=== PATIENT | male | born 1950 | race Caucasian/White ===

== ENCOUNTER 2017-05-10 11:50 | Emergency (ER) | payer OTHER ==
[~2017-05-10] VITALS: Ht 193 cm; Wt 92.9 kg
[~2017-05-10 11:50] MED LIST: ASPCH81 PO; CHOL100010 PO; COQ10100 PO; GLCSC500400 PO; LISI-729 PO; LPRUNK PO; MULT-506 PO; Multaq PO; OMEG10007 PO; PRD75 PO; SIMV10TA2 PO
[2017-05-10 11:51] VITALS: TEMP 37.1; Ht 193 cm; Wt 92.9 kg
[2017-05-10 12:00] VITALS: O2SAT 96
--- NOTE | 2017-05-10 12:27 | EMERGENCY ROOM VISIT NOTE ---
History Report prepared by Gigi: Ananya Sotomayor Under the Supervision of: Dr. Adelia Glover M.D. First contact with patient: 11:55 Chief Complaint: CHEST PAIN Stated Complaint: PVCS,CHEST DISCOMFORT, SOB History of Present Illness The patient is a 67 year old male who presents to the Emergency Room with complaints of persistent left sided chest pain that began one week ago. He currently rates his discomfort as a 4/10 in severity. The patient states that over the past week he has been experiencing left sided chest pain that he describes as a pressure and burning. He reports pain radiating into his left shoulder, but denies any pain radiating into jaw, neck, or back. The patient additionally reports palpitations. He states that his pain and palpitations worsen with exertion. The patient states that he has been short of breath with exertion. He reports a history of atrial fibrillation, and a DVT noting that he is on Xarelto. The patient additionally reports a history of muscular dystrophy. He reports recent increased stress, noting that his father was recently in the emergency department. The patient states that last night he experienced nausea, and additionally notes that he did not sleep well last night. He states that he has not eaten much today due to his nausea last night. The patient states that [] 8th he had a routine CT scan of his chest for a nodule in his lung. He states that he has had previous stress tests, noting that his last one was 5-6 years ago. The patient denies any personal history of heart disease, but notes a strong family history of heart disease, noting that his mother had a previous UT and his grandfather had an UT. He states that he takes aspirin every night. Source of History: patient Onset: one week ago Position: chest (left) Symptom Intensity: 4/10 Quality: pressure, burning Timing: other (persistent) Modifying Factors (Worsening): exertion Associated Symptoms: + SOB Note: Associated Symptoms: palpitations, pain radiating into left shoulder. Review of Systems See HPI for pertinent positives & negatives. A total of 10 systems reviewed and were otherwise negative. Past Medical & Surgical Medical Problems: (1) Atrial fibrillation (2) DVT (deep venous thrombosis) (3) Muscular dystrophy Family History Heart disease Social History Smoking Status: Never Smoker Marital Status: Housing Status: lives with significant other Occupation Status: retired Current/Historical Medications Scheduled Atorvastatin (Atorvastatin Calcium), 10 MG PO DAILY Dofetilide (Tikosyn), 500 MCG PO Q12 Lisinopril (Prinivil), 5 MG PO DAILY Metoprolol Succ (Toprol Xl) (Toprol-Xl), 50 MG PO DAILY Rivaroxaban (Xarelto), 20 MG PO DAILY Allergies Coded Allergies: No Known Allergies (Unverified , 05/10/17) Physical Exam Vital Signs Date Time Temp Pulse Resp B/P (MAP) Pulse Ox O2 Delivery O2 Flow Rate FiO2 05/10/17 14:30 80 05/10/17 14:22 165 05/10/17 13:24 80 18 126/69 95 Room Air 05/10/17 12:03 90 05/10/17 12:00 96 Room Air 05/10/17 12:00 96 Room Air 05/10/17 11:51 37.1 97 20 130/81 95 Room Air Physical Exam Vital signs reviewed. General: Well-appearing male, in no significant distress. HEENT: No scleral icterus, PERRLA, neck supple. Atraumatic. Cardiovascular: Regular rate and rhythm, no extra sounds. Pulmonary: Clear to auscultation bilaterally, normal work of breathing. Abdomen: Soft, nontender, nondistended, positive bowel sounds. Musculoskeletal: Atraumatic, no peripheral edema. Braces to his bilateral lower extremities. Neurologic: Patient awake alert and oriented x 3, full strength in all 4 extremities. Cranial nerves 2 through 12 grossly intact. Skin: Warm, dry, no rash Medical Decision & Procedures ER Provider Diagnostic Interpretation: CT results as stated below per my review and radiologist interpretation: CT ANGIOGRAPHY OF THE CHEST, PULMONARY EMBOLUS PROTOCOL CLINICAL HISTORY: Shortness of breath. Chest discomfort. COMPARISON STUDY: No previous studies for comparison. TECHNIQUE: Following IV administration of 116 mL of Optiray-320, helical axial images of the chest were obtained utilizing the pulmonary embolus protocol. Maximal intensity projections and sagittal and coronal reformats were viewed on an independent 3D workstation. IV contrast was administered without complication. A dose lowering technique was utilized adhering to the principles of ALARA. CT DOSE: 448.43 mGy.cm FINDINGS: No pulmonary emboli are identified. The size of the heart is normal. There is mild dilatation of the ascending aorta. The aortic root measures 4.2 cm at the level of the sinuses of Valsalva. There is no evidence of thoracic aortic dissection. There is no pericardial effusion. No enlarged axillary, mediastinal or hilar lymph nodes are present. The central airways are patent. There is no consolidation to suggest pneumonia. No pneumothorax or pleural effusion is present. Bony thorax and upper abdomen are unremarkable. Central airways are patent. IMPRESSION: 1. No pulmonary emboli identified. 2. No acute intrathoracic findings. 3. Mild dilatation of the ascending aorta, measuring 4.2 cm at the level of the sinuses of Valsalva. No thoracic aortic dissection. Electronically signed by: Earl Castro M.D. 05/10/2017 2:30 PM Dictated Date/Time: 05/10/2017 2:19 PM Laboratory Results 05/10/17 12:00 Red Blood Count 5.81, Mean Corpuscular Volume 88.8, Mean Corpuscular Hemoglobin 31.5, Mean Corpuscular Hemoglobin Concent 35.5, Mean Platelet Volume 10.9, Neutrophils (%) (Auto) 92.6, Lymphocytes (%) (Auto) 2.2, Monocytes (%) (Auto) 4.4, Eosinophils (%) (Auto) 0.4, Basophils (%) (Auto) 0.2, Neutrophils # (Auto) 10.04, Lymphocytes # (Auto) 0.24, Monocytes # (Auto) 0.48, Eosinophils # (Auto) 0.04, Basophils # (Auto) 0.02 05/10/17 12:00 Test 05/10/17 12:00 05/10/17 12:36 05/10/17 12:40 White Blood Count 10.84 K/uL (4.8-10.8) Red Blood Count 5.81 M/uL (4.7-6.1) Hemoglobin 18.3 g/dL (14.0-18.0) Hematocrit 51.6 % (42-52) Mean Corpuscular Volume 88.8 fL (80-100) Mean Corpuscular Hemoglobin 31.5 pg (25-34) Mean Corpuscular Hemoglobin Concent 35.5 g/dl (32-36) Platelet Count 200 K/uL (130-400) Mean Platelet Volume 10.9 fL (7.4-10.4) Neutrophils (%) (Auto) 92.6 % Lymphocytes (%) (Auto) 2.2 % Monocytes (%) (Auto) 4.4 % Eosinophils (%) (Auto) 0.4 % Basophils (%) (Auto) 0.2 % Neutrophils # (Auto) 10.04 K/uL (1.4-6.5) Lymphocytes # (Auto) 0.24 K/uL (1.2-3.4) Monocytes # (Auto) 0.48 K/uL (0.11-0.59) Eosinophils # (Auto) 0.04 K/uL (0-0.5) Basophils # (Auto) 0.02 K/uL (0-0.2) RDW Standard Deviation 42.1 fL (36.4-46.3) RDW Coefficient of Variation 13.1 % (11.5-14.5) Immature Granulocyte % (Auto) 0.2 % Immature Granulocyte # (Auto) 0.02 K/uL (0.00-0.02) Anion Gap 9.0 mmol/L (3-11) Est Creatinine Clear Calc Drug Dose 95.1 ml/min Estimated GFR () 97.0 Estimated GFR (Non- 83.7 BUN/Creatinine Ratio 17.6 (10-20) Calcium Level 8.4 mg/dl (8.5-10.1) Magnesium Level 2.2 mg/dl (1.8-2.4) Total Bilirubin 2.6 mg/dl (0.2-1) Direct Bilirubin 0.3 mg/dl (0-0.2) Aspartate Amino Transf (AST/SGOT) 27 U/L (15-37) Alanine Aminotransferase (ALT/SGPT) 45 U/L (12-78) Alkaline Phosphatase 75 U/L (45-117) Total Creatine Kinase 276 U/L (39-308) Creatine Kinase MB 6.4 ng/ml (0.5-3.6) Creatine Kinase MB Ratio 2.3 (0-3.0) Total Protein 7.1 gm/dl (6.4-8.2) Albumin 4.3 gm/dl (3.4-5.0) Bedside Troponin I < 0.030 ng/ml (0-0.045) Urine Color DK YELLOW Urine Appearance CLEAR (CLEAR) Urine pH 5.0 (4.5-7.5) Urine Specific [place] 1.027 (1.000-1.030) Urine Protein NEG (NEG) Urine Glucose (UA) NEG (NEG) Urine Ketones NEG (NEG) Urine Occult Blood TRACE (NEG) Urine Nitrite NEG (NEG) Urine Bilirubin NEG (NEG) Urine Urobilinogen NEG (NEG) Urine Leukocyte Esterase NEG (NEG) Urine WBC (Auto) 1-5 /hpf (0-5) Urine RBC (Auto) 0-4 /hpf (0-4) Urine Hyaline Casts (Auto) 1-5 /lpf (0-5) Urine Epithelial Cells (Auto) 5-10 /lpf (0-5) Urine Bacteria (Auto) NEG (NEG) Medications Administered Medications (Trade) Dose Ordered Sig/Facundo Route Start Time Stop Time Status Last Admin Dose Admin Sodium Chloride 500 ml @ 999 mls/hr Q31M STAT IV 05/10/17 12:28 05/10/17 12:58 DC 05/10/17 12:43 999 MLS/HR ECG Indication: chest pain, palpitations, SOB/dyspnea Rate (beats per minute): 91 Rhythm: normal sinus Findings: PVC, no acute ischemic change ED Course 1218: Past medical records reviewed. The patient was evaluated in room B4B. A complete history and physical examination was performed. 1228: Ordered Sodium Chloride 500 ml @ 999 mls/hr IV. 1450: I reevaluated the patient and he is resting comfortably. I discussed the test results with him and I discussed the treatment plan. He verbalized complete understanding and agreement. He is ready to go home shortly. Medical Decision Differential diagnoses includes acute coronary syndrome, pulmonary embolus, aortic dissection, musculoskeletal pain, pneumonia, pleural effusion, pneumothorax, gastritis, peptic ulcer disease. Medication Reconcilliation Current Medication List: was personally reviewed by me Blood Pressure Screening Patient's blood pressure: Normal blood pressure Blood pressure disposition: Did not require urgent referral Impression Primary Impression: Paroxysmal atrial fibrillation Additional Impression: Dyspnea Scribe Attestation The scribe's documentation has been prepared under my direction and personally reviewed by me in its entirety. I confirm that the note above accurately reflects all work, treatment, procedures, and medical decision making performed by me. Departure Information Dispostion Home / Self-Care Referrals Alistair Walters M.D. (PCP) Stevan Dickens D.O. Forms Call Back Authorization, HOME CARE DOCUMENTATION FORM, IMPORTANT VISIT INFORMATION Patient Instructions My [facility] Additional Instructions Diagnosis: Paroxysmal atrial fibrillation, dyspnea Please continue your medications as prescribed. Follow-up with cardiology this week as scheduled by case management. Return to the emergency department immediately for worsening of symptoms or any medical concerns. Problem Qualifiers
[2017-05-10] MEDS ORDERED: SODIUM CHLORIDE 0.9% 500ML 500 ML IV STA (12:28)
[2017-05-10] MEDS ORDERED: SODIUM CHLORIDE 0.9% 1000ML 1,000 ML IV STA (12:28)
[2017-05-10] MEDS ORDERED: LPT10 PO (12:44)
[2017-05-10] MEDS ORDERED: METO50TA7 PO (12:44)
[2017-05-10] MEDS ORDERED: DOFE500C PO (12:44)
[2017-05-10] MEDS ORDERED: LISI-729 PO (12:44)
[2017-05-10] MEDS ORDERED: RIVA1TAB4 PO (12:44)
[2017-05-10] MEDS ORDERED: OPTIRAY 320 IV PRN (12:45)
[2017-05-10 13:01] LABS: BUN/CREATININE RATIO 17.6 (10-20); CALCIUM 8.4 mg/dl (8.5-10.1); CREATININE 0.95 mg/dl (0.60-1.40); MAGNESIUM 2.2 mg/dl (1.8-2.4); POTASSIUM 3.8 mmol/L (3.5-5.1)
[2017-05-10 13:03] LABS: URINE APPEARANCE CLEAR (CLEAR); URINE BILIRUBIN NEG (NEG); URINE COLOR DK YELLOW; URINE NITRITE NEG (NEG); URINE SPECIFIC GRAVITY 1.027 (1.000-1.030); UROBILINOGEN NEG (NEG); ZZUR CULT IF INDIC CLEAN CATCH NO
[2017-05-10 13:06] LABS: MANUAL MICROSCOPIC REQUIRED? NO; REVIEW REQ? NO
[2017-05-10 13:06] LABS: CKMB/CK RATIO 2.3 (0-3.0)
[2017-05-10 13:32] LABS: BASO % 0.2 %; BASO ABS # 0.02 K/uL (0-0.2); COMPLETE YES; EOS % 0.4 %; HEMATOCRIT 51.6 % (42-52); IG% 0.2 %; LYMPH % 2.2 %; LYMPH ABS # 0.24 K/uL (1.2-3.4); MEAN CELL VOLUME 88.8 fL (80-100); MEAN CORPUSCULAR HEMOGLOBIN 31.5 pg (25-34); MEAN CORPUSCULAR HGB CONC 35.5 g/dl (32-36); MEAN PLATELET VOLUME 10.9 fL (7.4-10.4); MONO % 4.4 %; NEUT % 92.6 %; PLATELET COUNT 200 K/uL (130-400); RED BLOOD COUNT 5.81 M/uL (4.7-6.1); WHITE BLOOD COUNT 10.84 K/uL (4.8-10.8)
--- NOTE | 2017-05-10 14:31 | DIAGNOSTIC IMAGING REPORT ---
CT ANGIOGRAPHY OF THE CHEST, PULMONARY EMBOLUS PROTOCOL CLINICAL HISTORY: Shortness of breath. Chest discomfort. COMPARISON STUDY: No previous studies for comparison. TECHNIQUE: Following IV administration of 116 mL of Optiray-320, helical axial images of the chest were obtained utilizing the pulmonary embolus protocol. Maximal intensity projections and sagittal and coronal reformats were viewed on an independent 3D workstation. IV contrast was administered without complication. A dose lowering technique was utilized adhering to the principles of ALARA. CT DOSE: 448.43 mGy.cm FINDINGS: No pulmonary emboli are identified. The size of the heart is normal. There is mild dilatation of the ascending aorta. The aortic root measures 4.2 cm at the level of the sinuses of Valsalva. There is no evidence of thoracic aortic dissection. There is no pericardial effusion. No enlarged axillary, mediastinal or hilar lymph nodes are present. The central airways are patent. There is no consolidation to suggest pneumonia. No pneumothorax or pleural effusion is present. Bony thorax and upper abdomen are unremarkable. Central airways are patent. IMPRESSION: 1. No pulmonary emboli identified. 2. No acute intrathoracic findings. 3. Mild dilatation of the ascending aorta, measuring 4.2 cm at the level of the sinuses of Valsalva. No thoracic aortic dissection. Electronically signed by: Earl Castro M.D. 05/10/2017 2:30 PM Dictated Date/Time: 05/10/2017 2:19 PM
[2017-05-10 15:15] VITALS: BP 111/69; PULSE 77; O2SAT 97
== END 2017-05-10 15:17 | disposition home or self-care (01) ==
LOC: C.EDB 11:51
DX: I48.0 Paroxysmal atrial fibrillation (principal); R06.00 Dyspnea, unspecified; G71.0 Muscular dystrophy; Z86.718 Personal history of other venous thrombosis and embolism; Z82.49 Family history of ischemic heart disease and other diseases of the circulatory system; Z79.01 Long term (current) use of anticoagulants; Z79.82 Long term (current) use of aspirin